=== PATIENT | female | born 1995 | race Caucasian/White ===

== ENCOUNTER 2016-11-01 08:26 | Emergency (ER) | payer OTHER ==
[~2016-11-01] VITALS: Ht 170.2 cm; Wt 113.4 kg
[2016-11-01] MEDS ORDERED: AUGMENTIN PO (08:34)
[2016-11-02] MEDS ORDERED: TYLENOL #3 (17:46)
[2016-11-02] MEDS ORDERED: BIRTH CONTROL PILL (17:46)
== END 2016-11-01 09:00 | disposition home or self-care (01) ==
LOC: SED 08:26
DX: L60.0 Ingrowing nail (principal); Z88.8 Allergy status to other drugs, medicaments and biological substances; Z79.899 Other long term (current) drug therapy
CPT/HCPCS: 99283

== ENCOUNTER 2016-11-02 17:41 | Emergency (ER) | payer OTHER ==
--- NOTE | ~2016-11-02 | CT16 ---
[facility] A Service [facility] RADIOLOGY TEXT RESULTS PATIENT: QIANA PALMA LOCATION: SED : [birth year] UNIT #: [id number] AGE: [address]: AUSTIN WEINBERG SEX: F ORDER DR: [id number] [address] [address] [id number] E MR#: [id number] Acc #: [id number] NAME: QIANA PALMA : 1995 SEX: F STUDY DATE/TIME: 11/02/2016 19:51 UNIT: SED ROOM: STUDY DESCRIPTION: CT Angio Chest for PE Ordering Physician: [facility] MEDICAL IMAGING REPORT This report is preliminary unless electronic signature is present. EXAM CTA chest INDICATIONS Mid-sternal chest pain for 1 day. Elevated D-dimer. TECHNIQUE CT angiography of the chest utilizing 100 mL Isovue-370 IV contrast. Coronal 3-D MIP reconstructions and standard sagittal reconstructions were obtained. This CT exam was performed with one or more of the following radiation dose reduction techniques: automatic exposure control, adjustment of mA and/or kV according to patient size, and iterative reconstruction. COMPARISON Chest radiograph from the same day. FINDINGS No pulmonary embolus. No thoracic aortic aneurysm or dissection. Minimal soft tissue attenuation in the anterior mediastinum is compatible with residual thymus. No pericardial or pleural effusion. The lungs are clear. Central airways are patent. No acute osseous abnormalities. IMPRESSION 1. Negative for pulmonary embolus. 2. No acute findings in the chest. [facility] A Service of [facility] RADIOLOGY TEXT RESULTS PATIENT: QIANA PALMA LOCATION: SED : [birth year] UNIT #: [id number] AGE: [address]: AUSTIN WEINBERG SEX: F ORDER DR: Dictated by... Alfredo Saleh M.D. THIS IS AN ELECTRONICALLY VERIFIED REPORT Alfredo Saleh M.D. at 11/03/2016 3:57 PM RPC/pcl TD: 11/03/2016 15:26 JOB #: [id number] MEDICAL IMAGING REPORT Page 1 of 1
--- NOTE | ~2016-11-02 | CR72 ---
[facility] [place]. [facility] A Service of [facility] RADIOLOGY TEXT RESULTS PATIENT: QIANA PALMA LOCATION: SED : [birth year] UNIT #: [id number] AGE: [address]: AUSTIN WEINBERG SEX: F ORDER DR: [id number] [address] [address] [id number] E MR#: [id number] Acc #: [id number] NAME: QIANA PALMA : 1995 SEX: F STUDY DATE/TIME: 11/02/2016 18:24 UNIT: SED ROOM: STUDY DESCRIPTION: CR Chest Single View Portable Ordering Physician: [facility] MEDICAL IMAGING REPORT This report is preliminary unless electronic signature is present. EXAM AP portable chest 01/2017 HISTORY Chest pain today 04:30 p.m. COMPARISON None. FINDINGS Low volume is for age. Heart size is within normal limits, allowing for the diminished inspiration and portable technique. Pulmonary vascularity is within normal limits. No acute airspace disease. No pleural effusion or pneumothorax. IMPRESSION 1. Low-volume inspiration. No acute chest findings. Dictated by... Jo Zhang M.D. THIS IS AN ELECTRONICALLY VERIFIED REPORT Jo Zhang M.D. at 11/05/2016 8:38 AM KARLA/gabriella TD: 11/03/2016 14:21 JOB #: [id number] MEDICAL IMAGING REPORT Page 1 of 1
--- NOTE | ~2016-11-02 | EKG ---
PATIENT: QIANA PALMA UNIT #: [id number] Ventricular Rate: 67 BPM Atrial Rate: 67 BPM P-R Interval: 154 ms QRS Duration: 82 ms Q-T Interval: 380 ms QTC Calculation(Bezet): 401 ms P Ayr: 21 degrees Calculated R Ayr: 28 degrees Calculated T Ayr: 14 degrees Diagnosis Line: Normal sinus rhythm with sinus arrhythmia Diagnosis Line: Normal ECG Diagnosis Line: No previous ECGs available Diagnosis Line: Confirmed by BEAR CHAMPION MD ([id number]) on Diagnosis Line: 11/05/2016 3:09:01 PM INTERPRETING MD: JAYCEE RAUSCH
[~2016-11-02 17:41] MED LIST: AUGMENTIN PO
[2016-11-02] MEDS ORDERED: BIRTH CONTROL PILL (17:46)
[2016-11-02] MEDS ORDERED: TYLENOL #3 (17:46)
[2016-11-02 18:49] LABS: BASOPHIL# 0.1 X10e3 (0-0.3); BASOPHIL% 1.1 % (0-2.5); EOSINOPHIL# 0.3 X10e3 (0-0.7); EOSINOPHIL% 4.3 % (0.0-7.0); HEMATOCRIT 37.9 % (35.0-45.0); LYMPHOCYTE# 2.9 X10e3 (1.0-3.5); MEAN CELL VOLUME 87.6 FL (83-96); MEAN CORPUSCULAR HEMOGLOBIN 30.1 PG (28-34); MEAN CORPUSCULAR HGB CONC 34.3 g/dL (30-36); MEAN PLATELET VOLUME 8.2 FL (6.5-11.5); MONOCYTE# 0.5 X10e3 (0-1.0); MONOCYTE% 6.7 % (3.0-12.0); NEUTROPHIL# 4.1 X10e3 (1.5-7.1); NEUTROPHIL% 51.9 % (40-75); PLATELET COUNT 261 X10e3 (140-420); RED BLOOD COUNT 4.32 X10e (3.90-5.30); RED CELL DISTRIBUTION WIDTH 12.6 % (11.0-15.5)
[2016-11-02 18:50] LABS: DIFF IND NO
[2016-11-02 19:08] LABS: ALBUMIN SERUM 4.2 g/dL (3.5-5.0); ALKALINE PHOSPHATASE 39 U/L (32-92); ALT (SGPT) 20 U/L (10-40); AMYLASE 25 U/L (0-46); AST (SGOT) 15 U/L (10-42); BILIRUBIN,TOTAL 0.4 mg/dL (0.2-2.0); BLOOD UREA NITROGEN 13 mg/dL (9-23); BUN/CREATININE RATIO 18.57; CARBON DIOXIDE 24 mmol/L (22-31); CHLORIDE 104 mmol/L (100-111); CREATININE SERUM 0.7 mg/dL (0.6-1.4); GLUCOSE FASTING 96 mg/dL (70-110); LIPASE 22 U/L (22-51); POTASSIUM 3.8 mmol/L (3.5-5.1); PROTEIN TOTAL SERUM 7.6 g/dL (6.0-8.3); SODIUM 136 mmol/L (135-145)
[2016-11-02 19:09] LABS: POC - CKMB <1.0 ng/mL (0.0-7.9); POC - TROPONIN <0.05 ng/mL (<=0.05)
[2016-11-02 19:09] LABS: BILIRUBIN, DIRECT <0.1 mg/dL (0.0-0.2); BILIRUBIN,INDIRECT 0.3 mg/dL (0.0-0.9)
== END 2016-11-02 20:52 | disposition home or self-care (01) ==
LOC: SED 17:41
PROVIDERS: Physician Assistant
DX: R07.89 Other chest pain (principal); Z79.899 Other long term (current) drug therapy; Z88.8 Allergy status to other drugs, medicaments and biological substances
CPT/HCPCS: 36415; 71010; 71275; 80048; 80076; 82150; 82553; 83690; 84484; 85025; 85379; 93005; 99285; Q9967